=== PATIENT | female | born 1985 | race Hispanic/Latino ===

== ENCOUNTER 2022-03-22 12:49 | Emergency (ER) | payer BC, OTHER | END 2022-03-22 14:54 | disposition home or self-care (01) | LOC: ERS 12:49 | DX: U07.1 COVID-19 (principal) | CPT/HCPCS: 99283; U0003; U0005 ==

== ENCOUNTER 2023-08-01 20:41 | Emergency (ER) | payer BC, SELFPAY ==
[2023-08-01] MEDS ORDERED: Lorazepam 1 MG TAB ONE (21:22)
[2023-08-01 21:41] LABS: #Eosinphils 0.1 thou/uL (0.0-0.7); #Monocytes 0.6 thou/uL (0.11-0.59); #Neutrophils 4.9 thou/uL (1.40-6.50); %Basophils 0.6 % (0.0-1.0); %Eosinophils 0.8 % (0.0-10.0); %Lymphocytes 21.3 % (21.0-51.0); %Monocytes 8.3 % (0.0-10.0); %Neutrophils 68.3 % (42.0-75.0); Hematocrit 29.3 % (36.0-47.0); Hemoglobin 8.7 g/dL (12.0-16.0); Mean Corpuscular HGB CONC 29.7 g/dL (32.0-36.0); Platelet Count 452 10x3/uL (130-400); Red Blood Cell (RBC) Count 5.43 mill/uL (4.20-5.40); White Blood Cell (WBC) Count 7.2 10x3/uL (4.8-10.8)
[2023-08-01 21:55] LABS: ALT (SGPT) 21 U/L (8-55); AST (SGOT) 26 U/L (5-34); Albumin 4.3 g/dL (3.5-5.0); Alkaline Phosphatase 101 U/L (40-110); Anion Gap 13 mmol/L (10-20); BUN (Urea Nitrogen) 10 mg/dL (7.0-18.7); Bilirubin, Total 0.3 mg/dL (0.2-1.2); Calc. Creatinine Clearance 0 mL/min (70-130); Calcium 9.1 mg/dL (7.8-10.44); Carbon Dioxide 22 mmol/L (22-29); Chloride 108 mmol/L (98-107); Estimated GFR 104; Globulin 2.6 g/dL (2.4-3.5); Glucose 104 mg/dL (70-105); Potassium 3.8 mmol/L (3.5-5.1); Protein, Total 6.9 g/dL (6.0-8.3); Sodium 139 mmol/L (136-145)
[2023-08-01 22:05] LABS: Troponin I Less than 0.010 ng/mL (< 0.028)
[2023-08-01 22:20] LABS: Anisocytosis MODERATE=16-30 cells HPF (0-5); CellaVision Operator ID lab.abc; Elliptocytes SLIGHT = 2-5 cells HPF (0-1); Hypochromia MODERATE=16-30 cells HPF (0-5); Microcytosis MARKED = >30 cells HPF (0-5); Platelet Adequacy Comment Platelets Normal; Poikilocytosis MODERATE=16-30 cells HPF (0-5); Polychromasia SLIGHT = 2-3 cells HPF (0-2); Reflex for Review?? YES; Target Cells SLIGHT = 2-5 cells HPF (0-1); Tear Drops SLIGHT = 2-5 cells HPF (0-1)
== END 2023-08-01 22:25 | disposition home or self-care (01) ==
LOC: ERS 20:41
DX: F43.0 Acute stress reaction (principal); R07.89 Other chest pain
CPT/HCPCS: 36415; 80053; 84484; 85025; 85060; 93005

== ENCOUNTER 2023-10-17 16:05 | Emergency (ER) | payer SELFPAY ==
[2023-10-17 18:41] LABS: SARS-CoV-2 NAA Rapid Test Not Detected (NotDetected)
== END 2023-10-17 18:11 | disposition home or self-care (01) ==
LOC: ERS 16:05
DX: B34.9 Viral infection, unspecified (principal)
CPT/HCPCS: 99283

== ENCOUNTER 2024-02-01 13:20 | Emergency (ER) | payer SELFPAY | END 2024-02-01 17:45 | disposition home or self-care (01) | LOC: ERS 13:20 | DX: F41.9 Anxiety disorder, unspecified (principal); N30.90 Cystitis, unspecified without hematuria | CPT/HCPCS: 36415; 71045; 80053; 81001; 83735; 83880; 84484; 84703; 85025; 85060; 87077; 87086; 87186; 93005 ==

== ENCOUNTER 2024-02-03 11:25 | Emergency (ER) | payer SELFPAY | END 2024-02-03 12:33 | disposition home or self-care (01) | LOC: ERS 11:25 | DX: R53.1 Weakness (principal); R51.9 Headache, unspecified | CPT/HCPCS: 99284 ==

== ENCOUNTER 2024-08-06 16:07 | Emergency (ER) | payer SELFPAY ==
[2024-08-06] MEDS ORDERED: Ketorolac Tromethamine 30 MG (1 mL) VIAL ONE (18:33)
[2024-08-06] MEDS ORDERED: Ondansetron PF 4 MG/2 ML Vial ONE (18:34)
[2024-08-06 18:54] LABS: Bilirubin Negative (Negative); Blood, Urine Negative (Negative); CAUTI Indications for Culture Dysuria,urgency,freq; Clarity Turbid (Clear); Glucose, Urine (Dipstick) Normal (Negative); Ketone, Urine Negative (Negative); Leukocyte 250 Leu/uL (Negative); Nitrite 2+ (Negative); Protein, Urine (Dipstick) 10 mg/dL (Neg-Trace); Squamous Epithelial 0-3 HPF (0-3); Urobilinogen 3 mg/dL (Less than 2)
[2024-08-06 18:56] LABS: Pregnancy Test - Urine (BHCG) Negative (Negative); Pregu Control Bar Appear? YES (CONTROL BAR)
[2024-08-06 18:57] LABS: Pregu Control Background? CLEAR/WHITE (CLR/WHITE)
[2024-08-06 19:08] LABS: ALT (SGPT) 10 U/L (8-55); AST (SGOT) 20 U/L (5-34); Albumin 3.7 g/dL (3.5-5.0); Alkaline Phosphatase 75 U/L (40-110); Anion Gap 15 mmol/L (10-20); BUN (Urea Nitrogen) 9 mg/dL (7.0-18.7); Bilirubin, Total 0.5 mg/dL (0.2-1.2); Calc. Creatinine Clearance 0 mL/min (70-130); Calcium 8.6 mg/dL (7.8-10.44); Carbon Dioxide 19 mmol/L (22-29); Chloride 110 mmol/L (98-107); Estimated GFR 113; Globulin 3.5 g/dL (2.4-3.5); Glucose 93 mg/dL (70-105); Lipase 19 U/L (8-78); Potassium 3.5 mmol/L (3.5-5.1); Protein, Total 7.2 g/dL (6.0-8.3); Sodium 140 mmol/L (136-145)
[2024-08-06 19:16] LABS: Bacteria/HPF 4+ HPF (None Seen); Trichomonas/HPF Rare HPF (None Seen); WBC/HPF 21-50 HPF (0-3)
[2024-08-06 19:18] LABS: Urine Culture Reflex Yes Yes
[2024-08-06 19:52] LABS: #Basophils Less than 0.03 10x3/uL (0.0-0.2); %Basophils 0.2 % (0.0-1.0); %Eosinophils 1.4 % (0.0-10.0); %Lymphocytes 18.1 % (21.0-51.0); %Monocytes 5.3 % (0.0-10.0); %Neutrophils 74.5 % (42.0-75.0); Hematocrit 25.3 % (36.0-47.0); Hemoglobin 7.4 g/dL (12.0-16.0); Mean Corpuscular HGB CONC 29.2 g/dL (32.0-36.0); Mean Corpuscular Hemoglobin 14.7 pg (27.0-31.0); Mean Corpuscular Volume 50.1 fL (78.0-98.0); Platelet Count 289 10x3/uL (130-400); RBC Distribution Width 25.2 % (11.5-14.5); Red Blood Cell (RBC) Count 5.05 mill/uL (4.20-5.40); Reflex for Review?? YES
[2024-08-06 19:55] LABS: Anisocytosis MARKED = >30 cells HPF (0-5); Elliptocytes SLIGHT = 2-5 cells HPF (0-1); Hypochromia MODERATE=16-30 cells HPF (0-5); Microcytosis MARKED = >30 cells HPF (0-5); Ovalocytes MODERATE= 6-15 cells HPF (0-1); Platelet Adequacy Comment Platelets Normal; Poikilocytosis SLIGHT = 6-15 cells HPF (0-5); Polychromasia SLIGHT = 2-3 cells HPF (0-2); Schistocytes MODERATE= 6-15 cells HPF (0-1); Spherocytes MODERATE= 6-15 cells HPF (None Seen); Target Cells SLIGHT = 2-5 cells HPF (0-1); Tear Drops MODERATE= 6-15 cells HPF (0-1)
== END 2024-08-06 20:21 | disposition home or self-care (01) ==
LOC: ERS 16:07
DX: K52.9 Noninfective gastroenteritis and colitis, unspecified (principal); N39.0 Urinary tract infection, site not specified
CPT/HCPCS: 80053; 81001; 81025; 83690; 85025; 85060; 87077; 87086; 87186; 96374; 96375; J1885; J2405